=== PATIENT | male | born 1955 | race Caucasian/White ===

== ENCOUNTER 2022-12-07 15:32 | Emergency (ER) | payer MEDICARE, MEDICAID ==
[~2022-12-07] VITALS: Ht 162.6 cm; Wt 95.0 kg
[2022-12-07] MEDS ORDERED: ACETAMINOPHEN 325MG TABLET PO ONE (16:15)
[2022-12-07 18:27] VITALS: BP 134/64
== END 2022-12-07 18:29 | disposition home or self-care (01) ==
LOC: ER 15:32
DX: S00.01XA Abrasion of scalp, initial encounter (principal); E11.9 Type 2 diabetes mellitus without complications; W18.30XA Fall on same level, unspecified, initial encounter; Y93.89 Activity, other specified; Y92.89 Other specified places as the place of occurrence of the external cause; Y99.8 Other external cause status
CPT/HCPCS: 99284